=== PATIENT | female | born 1960 | race Caucasian/White ===

== ENCOUNTER 2016-12-25 16:14 | Emergency (ER) | payer BC ==
[2016-12-25 16:26] VITALS: BP 149/74
[2016-12-25] MEDS ORDERED: Phenazopyridine TAB* 100 MG PO ONE (17:00)
[2016-12-25] MEDS ORDERED: Sulfamethox/Trimethoprim DS 800/160* TAB PO ONE (17:00)
--- NOTE | 2016-12-25 17:13 | UC ---
Complaint Female HPI - HPI Summary HPI Summary: ONE DAY HISTORY OF URINARY PRESSURE, DISCOMFORT WITH URINATION AND CLOTTED BLOOD IN URINE. NO ABDOMINAL PAIN. NO BACK PAIN. - History Of Current Complaint Chief Complaint: UCGU Stated Complaint: BLOOD IN URINE Time Seen by Provider: 12/25/16 16:48 Hx Obtained From: Patient Onset/Duration: Gradual Onset, Lasting Hours, Still Present Timing: Lasting Hours Severity Initially: Moderate Severity Currently: Moderate Character: Dull, Cramping Aggravating Factor(s): Urination Alleviating Factor(s): Nothing Associated Signs And Symptoms: Negative: Fever, Back Pain, Vaginal Bleeding/ Discharge, Nausea, Vomiting(# Of Episodes =) - Risk Factors Ectopic Risk Factor: Negative Ovarian Torsion Risk Factor: Negative - Allergies/Home Medications Allergies/Adverse Reactions: Allergies Allergy/AdvReac Type Severity Reaction Status Date / Time No Known Allergies Allergy Verified 12/25/16 16:23 Home Medications: Home Medications Multi Vitamin Womens 2 tab PO DAILY 12/25/16 [History Confirmed 12/25/16] PMH/Surg Hx/FS Hx/Imm Hx Previously Healthy: Yes - Surgical History Surgical History: Yes Surgery Procedure, Year, and Place: [place], [place] - mastectomy 04/24. Reconstruction x2 last time 09/01 - Family History Known Family History: Positive: None Negative: Renal Disease - Social History Occupation: Employed Full-time Lives: With Family Alcohol Use: Occasionally Substance Use Type: None Smoking Status (MU): Former Smoker Review of Systems Constitutional: Negative Skin: Negative Eyes: Negative ENT: Negative Respiratory: Negative Cardiovascular: Negative Gastrointestinal: Negative Genitourinary: Hematuria, Frequency, Urgency Motor: Negative Neurovascular: Negative Musculoskeletal: Negative Neurological: Negative Psychological: Negative Is Patient Immunocompromised?: No All Other Systems Reviewed And Are Negative: Yes Physical Exam Triage Information Reviewed: Yes Appearance: Well-Appearing, Well-Nourished, Pain Distress - MILD Vital Signs: Initial Vital Signs Temp 98.3 F 12/25/16 16:19 Pulse 74 12/25/16 16:19 Resp 18 12/25/16 16:19 BP 149/74 12/25/16 16:19 Pulse Ox 100 12/25/16 16:19 Vital Signs Reviewed: Yes Eye Exam: Normal ENT Exam: Normal ENT: Positive: Normal ENT inspection, Hearing grossly normal, TMs normal Dental Exam: Normal Neck exam: Normal Neck: Positive: Supple, Nontender Respiratory Exam: Normal Respiratory: Positive: Chest non-tender, Lungs clear, Normal breath sounds, No respiratory distress, No accessory muscle use Cardiovascular Exam: Normal Cardiovascular: Positive: RRR, No Murmur, Pulses Normal, Brisk Capillary Refill Abdominal Exam: Normal Abdomen Description: Positive: Nontender, No Organomegaly, Soft. Negative: CVA Tenderness (R), CVA Tenderness (L) Musculoskeletal Exam: Normal Musculoskeletal: Positive: Strength Intact, ROM Intact, No Edema Neurological Exam: Normal Psychological Exam: Normal Psychological: Positive: Normal Response To Family Skin Exam: Normal Complaint Female Dx - Course Course Of Treatment: PATIENT TREATED FOR UTI SYMPTOMS, ADVISED TO RETURN TO PRIMARY CARE IF HEMATURIA DOES NOT SHOW SIGNS OF IMPROVEMENT AFTER 48 HRS OF TREATMENT. ALSO ADVISED TO RETURN TO EMERGENCY DEPARTMENT IF SYMPTOMS WORSEN OR IF NEW SYMPTOMS DEVELOP. - Differential Dx/Diagnosis Differential Diagnosis/HQI/PQRI: Cervicitis, Urinary Tract Infection Provider Diagnoses: URINARY TRACT INFECTION Discharge - Discharge Plan Condition: Stable Disposition: HOME Prescriptions: Phenazopyridine TAB* [Pyridium 100 mg TAB*] 100 mg PO TID PRN #15 tab PRN Reason: Pain Sulfamethox/Trimethoprim DS* [Bactrim DS 800/160 TAB*] 1 tab PO BID #10 tab Patient Education Materials: Urinary Tract Infection in Women (ED) Referrals: Екатерина Davis MD [Primary Care Provider] -
== END 2016-12-25 17:08 | disposition home or self-care (01) ==
LOC: UCEAST 16:14
DX: N39.0 Urinary tract infection, site not specified (principal); B96.20 Unspecified Escherichia coli [E. coli] as the cause of diseases classified elsewhere; R31.9 Hematuria, unspecified; Z87.891 Personal history of nicotine dependence
CPT/HCPCS: 81003; 87077; 87086; 87186; 99212; A9270-GY; G0463